=== PATIENT | male | born 1945 | race Caucasian/White ===

== ENCOUNTER → 2021-09-10 14:21 | Outpatient (CLI) | payer MEDICARE, SELFPAY ==
[2021-09-12 09:15] LABS: PSA, Free 0.94 ng/mL; Prostate Specific Ag 5.9 ng/mL (0.0-4.0)
== END ==
PROVIDERS: Visit Provider Urology
DX: R97.20 Elevated prostate specific antigen [PSA] (principal)
CPT/HCPCS: 36415; 84153; 84154

== ENCOUNTER → 2021-10-09 13:48 | Outpatient (CLI) | payer MEDICARE, SELFPAY | PROVIDERS: Visit Provider Urology | DX: N40.1 Benign prostatic hyperplasia with lower urinary tract symptoms (principal); Z01.812 Encounter for preprocedural laboratory examination; Z11.52 Encounter for screening for COVID-19 | CPT/HCPCS: C9803; U0003; U0005 ==

== ENCOUNTER 2021-10-12 09:34 | Day surgery (SDC) | payer MEDICARE, SELFPAY ==
[2021-10-08 11:10] VITALS: BMI 28.8
[2021-10-12 09:47] VITALS: BP 159/80; PULSE 76; RESP 18; TEMP 36.5; O2SAT 100
[2021-10-12 11:19] VITALS: BP 150/89; PULSE 68; RESP 18; TEMP 36.6; O2SAT 94
[2021-10-12 11:31] VITALS: BP 150/89; PULSE 68; RESP 18; TEMP 36.6; O2SAT 94
--- NOTE | 2021-10-12 12:43 | HMH.OPNOTE ---
Date of procedure: 10/12/21 Pre-op Diagnosis:: BPH with lower urinary tract symptoms. Post-op Diagnosis:: BPH with lower urinary tract symptoms Procedure performed:: Cystoscopy Surgeon:: Case Alvarez MD Anesthesia: local Estimated blood loss (mL): 0 Clinical Note:: 76-year-old white male with lower urinary tract symptoms presents for cystoscopic evaluation. Operative findings:: Patient with by lobar hyperplasia and small median lobe. Operative note:: Patient taken to the cystoscopy suite after informed consent was obtained. On the stretcher he was prepped and draped in the standard surgical fashion and 2% lidocaine placed into the urethra and the urethra clamped for 5 minutes. 5 minutes the flexible cystoscope was introduced into the urethral meatus and passed to the prostatic urethra and into the bladder. The bladder was examined in a systematic fashion. There was some mild to moderate trabeculation present but no cellules or diverticula. The ureteral orifices in their normal anatomic position with clear efflux of urine. Scope was retroflexed showing a small median lobe. Prostatic urethra was evaluated and it showed by lobar hyperplasia prostatic length of about 2-1/2 cm. Scope removed and patient tolerated the procedure well. We discussed the findings today and I discussed with him that he is a good candidate for UroLift if he would like to proceed. He will call me if he does wish to schedule. His recent PSA was stable at 5.9. Condition: stable Disposition: same day Specimens:: None Complications:: None
== END 2021-10-12 11:31 | disposition home or self-care (01) ==
LOC: OUTP 09:35
PROVIDERS: PCP Family Medicine; Visit Provider Urology
DX: N40.1 Benign prostatic hyperplasia with lower urinary tract symptoms (principal); R35.0 Frequency of micturition; R97.20 Elevated prostate specific antigen [PSA]; E78.5 Hyperlipidemia, unspecified; I10 Essential (primary) hypertension; Z79.899 Other long term (current) drug therapy; M19.90 Unspecified osteoarthritis, unspecified site
CPT/HCPCS: 52000

== ENCOUNTER → 2022-08-25 13:39 | Outpatient (CLI) | payer MEDICARE, SELFPAY ==
--- NOTE | 2022-08-25 13:48 | XR_ITS ---
FINAL REPORT CLINICAL HISTORY: POSSIBLE FRACTURE rt great toe COMPARISON: None FINDINGS: Three views of the right toes were obtained. There is no acute fracture or dislocation. There are minimal hypertrophic changes of the 1st interphalangeal joint. There is no soft tissue abnormality. IMPRESSION: No acute fracture. Reviewed, Interpreted and Dictated by Chong Hackett MD Transcribed by Kathy Ghosh Authenticated and . [facility]
== END ==
PROVIDERS: PCP Family Medicine; Visit Provider Internal Medicine
DX: S92.912A Unspecified fracture of left toe(s), initial encounter for closed fracture (principal)
CPT/HCPCS: 73660

== ENCOUNTER → 2022-08-31 11:05 | Outpatient (CLI) | payer MEDICARE, SELFPAY | PROVIDERS: PCP Family Medicine; Visit Provider Family Medicine | DX: R07.9 Chest pain, unspecified (principal) | CPT/HCPCS: 78452; 93017; A9502 ==

== ENCOUNTER → 2022-10-05 14:16 | Outpatient (CLI) | payer MEDICARE, SELFPAY ==
--- NOTE | 2022-10-05 14:25 | XR_ITS ---
FINAL REPORT CLINICAL HISTORY: acute right hip pain PAIN FINDINGS: SACRUM COCCYX 3 views demonstrate no acute fracture or dislocation. The sacral arches are intact. There are mild degenerative changes of the SI joints. No soft tissue abnormality is seen. IMPRESSION: No acute process. Reviewed, Interpreted and Dictated by Raghavendra German III, MD Transcribed by Sebastien Holden Authenticated and [facility]
--- NOTE | 2022-10-05 14:25 | XR_ITS ---
FINAL REPORT CLINICAL HISTORY: acute right hip pain FINDINGS: AP PELVIS: A single view of the pelvis was obtained. There is no acute fracture or dislocation. There are mild degenerative changes. Soft tissues are unremarkable. IMPRESSION: No acute process. Reviewed, Interpreted and Dictated by Raghavendra German III, MD Transcribed by Sebastien Holden Authenticated and . [facility]
== END ==
PROVIDERS: PCP Family Medicine; Visit Provider Internal Medicine
DX: M25.551 Pain in right hip (principal)
CPT/HCPCS: 72170; 72220

== ENCOUNTER 2024-04-02 11:55 | Day surgery (SDC) | payer MEDICARE, SELFPAY ==
--- NOTE | 2024-03-27 13:54 | SUR.PREOP ---
1354: VM left with call back.
--- NOTE | 2024-03-30 11:13 | SUR.PREOP ---
spoke with patient on 03/30/24 for pre op check in. patient states Dr. Ga from cardiology told patient to stop plavix 2 weeks prior to colonoscopy on 04/02/24. patient states he has had stents placed in June of 2023. Attempted to [facility] office for cardiac clearance letter with no answer and voicemail left at this time.
[2024-03-30 11:19] VITALS: BMI 27.6
[2024-04-02 12:42] VITALS: BP 170/85; PULSE 64; RESP 16; TEMP 36.9; O2SAT 95
[2024-04-02] MEDS: 0.9 % SODIUM CHLORIDE 1000ML 1,000 ML 25 ML IV (13:02)
--- NOTE | 2024-04-02 13:20 | EXP.ANES.CKL ---
[facility] Disclaimer: The information contained in this section may have been updated after the patient was seen, as this information can be updated by other users. Medical History Hyperlipidemia Hypertension Surgical History H/O heart artery stent Social History Smoking Status: Never smoker alcohol intake: never substance use type: denies use current occupational status: retired Travel in the last 8 weeks: None household members: spouse housing: house caffeine: No [facility] Anesthesia Checklist Patient Identification Patient Identification: Arm Band and Verbal (Name & ) Structural Data Admitted From: Home Planned Operative Procedure/s: Colonoscopy Consent for Planned Operative Procedure(s) Verified: Yes Verified Documents: Surgical Consent and History and Physical NPO Status Verified Time NPO: 00:00 Additional verifications Anesthesia Reactions: No Airway Assessment Mallampati Score:: Class II C-Spine Mobility Assessed: Yes TMJ Mobility Assessed: Yes Dentition: Good Dentition Neurological Assessment Level of Consciousness: Awake Hx Seizures: No Numbness or tingling in extremities: No Anesthesia Plan Anesthesia Risk discussed: Yes Anesthesia Plan: Verified ASA Class: III Anesthesia Type: MAC
--- NOTE | 2024-04-02 13:53 | EXP.HP ---
History of Present Illness *Admission Date: 04/02/24 *Reason for visit:: Screening *History of present illness: Mr. Deleon is a 78-year-old gentleman who is here for screening colonoscopy. His last colonoscopy was 2013 or 2014 and he had a polyp removed. The examination is deemed medically necessary for surveillance colonoscopy/screening. The patient has been seen, interviewed and examined prior to the procedure by both myself and the anesthesia provider. [facility] Disclaimer: The information contained in this section may have been updated after the patient was seen, as this information can be updated by other users. Medical History Hyperlipidemia Hypertension Surgical History H/O heart artery stent Social History Smoking Status: Never smoker alcohol intake: never substance use type: denies use current occupational status: retired Travel in the last 8 weeks: None household members: spouse housing: house caffeine: No Other Medical History Have you received the Flu Vaccine for this season: No Have you received the Pneumonia Vaccine: No Review of Systems Review of Systems Review of systems (narrative): Negative *Cardiovascular Comments: Negative *Gastrointestinal Comments: Negative *Genitourinary Comments: Negative *Musculoskeletal Comments: Negative *Neurologic Comments: Negative Meds Home Medications and Allergies Home Medications ?Medication ?Instructions ?Recorded ?Confirmed ?Type alfuzosin 10 mg tablet,extended 1 tab PO DAILY URINATION 07/14/21 04/02/24 History release 24 hr amlodipine 10 mg-valsartan 320 mg 1 tab PO DAILY bp 07/14/21 04/02/24 History tablet loratadine 10 mg capsule 10 mg PO DAILY ALLERGIES 10/08/21 04/02/24 History multivitamin 1 each PO DAILY Supplement 10/08/21 04/02/24 History alfuzosin 10 mg tablet,extended 10 mg PO DAILY #90 tabs 12/22/21 04/02/24 Rx release 24 hr clopidogrel 75 mg tablet 75 mg PO DAILY 03/30/24 04/02/24 History irbesartan 75 mg tablet 75 mg PO DAILY 03/30/24 04/02/24 History metoprolol succinate 25 mg capsule 25 mg PO DAILY 03/30/24 04/02/24 History sprinkle, ext. release 24 hr New Prescriptions to Start Prescriptions: Allergies Allergy/AdvReac Type Severity Reaction Status Date / Time valsartan Allergy Unknown Verified 04/02/24 12:38 allergy reaction Exam Data for Last 24 hours Vital signs and Labs for Last 24 Hours: Temp Pulse Resp BP Pulse Ox O2 Del Method 98.5 F 64 16 170/85 H 95 Room Air 04/02/24 12:42 04/02/24 12:42 04/02/24 12:42 04/02/24 12:42 04/02/24 12:42 04/02/24 12:42 I & O for Last 24 hours: Intake & Output 03/30/24 03/31/24 04/01/24 04/02/24 23:59 23:59 23:59 23:59 Weight 182 lb *Routine HEENT Exam Head: Present normocephalic Eye: Present EOMI and PERRL ENT: Present mucous membranes moist *Routine Neck Exam Neck: Present supple *Routine Respiratory Exam Respiratory: Present CTA bilaterally *Routine Cardiovascular Exam Cardiovascular: Present RRR *Routine Abdominal Exam Abdominal: Present soft and normoactive bowel sounds; Absent tenderness *Routine Rectal Exam Rectal:: deferred *Routine Genitalia Exam Genitalia:: deferred *Routine Extremities Exam Extremities: Absent cyanosis, clubbing or edema *Routine Skin Exam Skin: Present warm; Absent rash *Routine Neurological Exam Neurological: Present alert and oriented X3 Assessment and Plan *Assessment and plan (1) Screening for colon cancer: Status: Acute Category: Medical Code(s): Z12.11 - Encounter for screening for malignant neoplasm of colon (2) Personal history of colon polyps, unspecified: Status: Acute Category: Medical Code(s): Z86.0100 - Personal history of colon polyps, unspecified Plan A/P: 1. Screening for colon cancer is the preprocedural diagnosis. The patient will be anesthetized/sedated using MAC sedation. The patient has been seen and examined. Cardiac and lung assessment prior to the examination is stable. Proceed with planned colonoscopy
[2024-04-02 13:58] VITALS: O2SAT 97
--- NOTE | 2024-04-02 14:03 | P.PCN_ITS ---
[facility] Procedure Note Date: 04/02/24 Time: 14:31 Procedure Note:: Colonoscopy Procedure Report: Colonoscopy with cold snare polypectomy Endoscopist: Stephen Palacios II, MD Referring physician: Rik Mccormack M.D. Date of Procedure: April 02, 2024 Equipment: Olympus 190 variable stiffness pediatric colonoscope Sedation: MAC sedation Indication: Mr. Deleon is a 78-year-old gentleman who is here for follow-up screening colonoscopy. His last colonoscopy was 9 or 10 years ago (2013 or 5) and he had a single polyp removed according to the patient. He reports no abdominal pain, weight loss, change in his bowel habits or rectal bleeding. He reports no family history of colon cancer. Procedure: Prior to the procedure, a history and physical exam was performed, and patient's medications and allergies were reviewed. The risks, benefits and alternatives of the sedation and procedure were discussed with the patient. All questions were answered and informed consent was obtained. The patient was brought to the procedure room. Patient identification and proposed procedure were verified by the physician and the nurse. The patient was placed in a left lateral decubitus position and the scope was passed under direct vision. Throughout the procedure, the patient's blood pressure, pulse, and oxygen saturations were monitored continuously. The colonoscopy was accomplished without difficulty. The patient tolerated the procedure well. Findings: On digital rectal examination there was normal rectal tone. There were no external hemorrhoids but there were hemorrhoidal tags. The prostate was 2- 3+, firm but symmetric without nodules. The colonoscope was introduced through the anal canal to the rectum and advanced to the cecum. The ileocecal valve and appendiceal orifice were identified. The scope was advanced a short distance into the ileum which appeared grossly normal. The scope was then withdrawn into the colon. There were 4 polyps 2 of which were larger laterally spreading granular adenomatous sessile polyps (cecum x (17 mm) and ascending x 1 (18 mm). These were completely removed using cold snare polypectomy in piecemeal resection. There was another diminutive 5 mm ascending polyp and a 5 mm sigmoid polyp which were both removed via cold snare polypectomy. The remaining cecum, ascending and transverse colon and mucosa were grossly normal. There were scattered diverticuli throughout the descending and sigmoid colon (LEFT colon). The rectum itself was normal. Upon retroflexion within the rectum there were grade 2 internal hemorrhoids with hypertrophied anal papilla. The preparation was good throughout with [place] Preparation Score of 8 out of 9. The cecal time was 15 minutes. Impression: 1. 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 18 mm ascending sessile adenoma (laterally spreading granular adenoma) 3. 2 additional diminutive polyps 4. Left-sided diverticulosis 5. Grade 2 internal hemorrhoids Plan: I will follow-up the polyp histology. Based upon the larger 17 and 18 mm adenomatous polyps, I would recommend 3-year surveillance colonoscopy. I will encourage psyllium bulking fiber supplementation on a maintenance basis.
[2024-04-02 14:32] VITALS: BP 102/42; PULSE 54; RESP 18; TEMP 36.8; O2SAT 94
[2024-04-02 14:42] VITALS: BP 127/64; PULSE 52; RESP 18; O2SAT 94
[2024-04-02 14:52] VITALS: BP 120/49; PULSE 50; RESP 18; O2SAT 96
[2024-04-02 15:02] VITALS: BP 135/50; PULSE 48; RESP 18; O2SAT 96
== END 2024-04-02 15:02 | disposition home or self-care (01) ==
PROVIDERS: PCP Family Medicine; Visit Provider Internal Medicine Gastroenterology
PROC: (CPT 45385; principal; 2024-04-02 14:00)
DX: K63.5 Polyp of colon (principal); Z12.11 Encounter for screening for malignant neoplasm of colon; Z86.0100 Personal history of colon polyps, unspecified; D12.2 Benign neoplasm of ascending colon; D12.0 Benign neoplasm of cecum; K57.30 Diverticulosis of large intestine without perforation or abscess without bleeding; K64.1 Second degree hemorrhoids
CPT/HCPCS: 45385; 88305; J7030